=== PATIENT | female | born 1995 | race Caucasian/White ===

== ENCOUNTER 2017-03-24 17:39 | Emergency (ER) | payer OTHER ==
[2017-03-24 17:44] VITALS: BP 141/73
--- NOTE | 2017-03-24 17:55 | ER Document Report ---
HPI - HPI Patient complains to provider of: Vomiting 1 yesterday Onset: Yesterday Pain Level: 0 Context: Patient is a 21-year-old female presents emergency department with chief complaint that she needs a work note. Patient states that last evening she was at a friend's house overnight and had one episode of emesis. States she woke up this morning figured she would call out of work due to that to make sure she was not sick. She felt much better work told her that she needed a work note. At this time patient denies any dizziness, lightheadedness, nausea, vomiting, abdominal pain, diarrhea, constipation, pelvic pain. Patient states that she has been tolerating p.o. for the past 24 hours without any difficulty. States that she is sexually active with her but uses protection into some control and she is declining a test at this time. She denies any urinary frequency, urgency, pyuria, hematuria. - DERM Skin Color: Normal Past Medical History - Social History Smoking Status: Never Smoker Family History: Reviewed & Not Pertinent Renal/ Medical History: Denies: Hx Peritoneal Dialysis Vertical Provider Document - CONSTITUTIONAL Notes: PHYSICAL EXAM GENERAL: Alert, interacts well. HEAD: Normocephalic, atraumatic. EYES: Pupils equal, round, and reactive to light. Extraocular movements intact. ENT: Oral mucosa moist, tongue midline. NECK: Full range of motion. Supple. Trachea midline. LUNGS: Clear to auscultation bilaterally, no wheezes, rales, or rhonchi. No respiratory distress. HEART: Regular rate and rhythm. No murmurs, gallops, or rubs. ABDOMEN: Soft, nondistended, nontender. No guarding, rebound, or rigidity.. Bowel sounds present in all 4 quadrants. Female exam declined EXTREMITIES: Moves all 4 extremities spontaneously. No edema, radial and dorsalis pedis pulses 2/4 bilaterally. No cyanosis. NEUROLOGICAL: Alert and oriented x4. Normal speech. PSYCH: Normal affect, normal mood. SKIN: Warm, dry, normal turgor. No rashes or lesions noted. - INFECTION CONTROL TRAVEL OUTSIDE OF THE [place] IN LAST 30 DAYS: No - RESPIRATORY O2 Sat by Pulse Oximetry: 100 Course - Re-evaluation Re-evalutation: 03/24/17 17:15 Patient is a 21-year-old female is hemodynamically stable, no acute distress afebrile. Tolerating p.o. without any difficulty. Benign physical exam findings. Patient stable for discharge home. After performing a Medical Screening Examination, I estimate there is LOW risk for ACUTE APPENDICITIS, BOWEL OBSTRUCTION, ACUTE CHOLECYSTITIS, PERFORATED DIVERTICULITIS, INCARCERATED HERNIA, PANCREATITIS, PELVIC INFLAMMATORY DISEASE, PERFORATED ULCER, ECTOPIC , or [place]IAN ABSCESS, thus I consider the discharge disposition reasonable. Also, there is no evidence or peritonitis , sepsis, or toxicity. I have reevaluated this patient multiple times and no significant life threatening changes are noted. The patient and I have discussed the diagnosis and risks, and we agree with discharging home with close follow-up with the understanding that symptoms and presentations can change. We also discussed returning to the Emergency Department immediately if new or worsening symptoms occur. We have discussed the symptoms which are most concerning (e.g., bloody stool, fever, changing or worsening pain, vomiting) that necessitate immediate return. - Vital Signs Vital signs: Temp Pulse Resp BP Pulse Ox 98.3 F 82 16 141/73 H 100 03/24/17 17:43 03/24/17 17:43 03/24/17 17:43 03/24/17 17:43 03/24/17 17:43 Discharge - Discharge Clinical Impression: Vomiting alone Qualifiers: Vomiting type: unspecified Vomiting Intractability: non-intractable Qualified Code(s): R11.11 - Vomiting without nausea Condition: Good Disposition: HOME, SELF-CARE Instructions: Vomiting ([facility]) Forms: Return to Work
== END 2017-03-24 17:59 | disposition home or self-care (01) ==
LOC: ER 17:39
DX: R11.11 Vomiting without nausea (principal)
CPT/HCPCS: 99281